=== PATIENT | male | born 1985 | race Caucasian/White ===

== ENCOUNTER 2018-01-15 16:53 | Emergency (ER) | payer MEDICAID ==
[~2018-01-15] VITALS: Ht 175.3 cm; Wt 63.0 kg
[~2018-01-15 16:53] MED LIST: ONDA4TAB6 PO
[2018-01-15 17:01] VITALS: BP 117/78
== END 2018-01-15 17:33 | disposition home or self-care (01) ==
LOC: ER 16:54
DX: J40 Bronchitis, not specified as acute or chronic (principal); Z87.891 Personal history of nicotine dependence
CPT/HCPCS: 99281